=== PATIENT | male | born 1935 | race Caucasian/White ===

== ENCOUNTER 2021-09-11 17:49 | Inpatient (IN) | payer MEDICARE, OTHER ==
[2021-09-11 18:47] VITALS: BMI 25.8
[2021-09-11 20:25] LABS: BASO % 0.5 % (0-2.0); HEMATOCRIT 40.4 % (35.4-49); HEMOGLOBIN 13.5 GM/dL (11.7-16.9); LYMPH % 20.3 % (8-40); MCH 29.3 pg (25.7-33.7); MCHC 33.3 g/dl (32.0-35.9); MEAN PLT VOLUME 8.1 fl (7.5-11.1); MONO % 6.7 % (3.8-10.2); NEUT % 71.5 % (42.8-82.8); PLATELET COUNT 157 10^3/uL (134-434); RDW 15.3 % (11.9-15.9); WHITE BLOOD COUNT 6.6 K/mm3 (4.0-10.0)
[2021-09-11 20:36] LABS: INR 1.76 (0.83-1.09); PROTHROMBIN TIME (PATIENT) 20.4 SEC (9.7-13.0)
[2021-09-11 20:38] LABS: ACTIVATED PTT 34.5 SECONDS (25.2-36.5)
[2021-09-11 20:43] LABS: BLOOD UREA NITROGEN 34.2 mg/dL (7-18); CALCIUM 8.9 mg/dL (8.5-10.1)
[2021-09-11 20:44] LABS: ALBUMIN 3.6 g/dl (3.4-5.0)
[2021-09-11 20:46] LABS: CREATININE 1.5 mg/dL (0.55-1.3)
[2021-09-11 20:48] LABS: BILIRUBIN,TOTAL 0.4 mg/dL (0.2-1)
[2021-09-11 23:39] LABS: URINE APPEARANCE CLEAR; URINE BILIRUBIN NEGATIVE (NEGATIVE); URINE COLOR YELLOW; URINE GLUCOSE (UA) NEGATIVE (NEGATIVE); URINE KETONE NEGATIVE (NEGATIVE); URINE LEUK ESTERASE NEGATIVE (NEGATIVE); URINE NITRITE NEGATIVE (NEGATIVE); URINE PROTEIN NEGATIVE (NEGATIVE); URINE UROBILINOGEN 0.2 mg/dL (0.2-1.0)
[2021-09-12] MEDS ORDERED: SENNOSIDES 8.6MG TABLET (FP) PO PRN (07:33)
[2021-09-12] MEDS ORDERED: ASPIRIN COATED 81 MG TABLET.EC PO SCH (10:00)
[2021-09-12] MEDS ORDERED: METOPROLOL TARTRATE 50 MG TABLET (FP) PO SCH (10:00)
[2021-09-12] MEDS ORDERED: MULTIVITAMINS (DAILY MVI) TABLET (FP) PO SCH (10:00)
[2021-09-12] MEDS ORDERED: LOSARTAN POTASSIUM 50 MG TABLET PO SCH (10:00)
[2021-09-12] MEDS ORDERED: POLYETHYLENE GLYCOL (HEALTHYLAX) 3350 17 GM PACKET PO SCH (10:00)
[2021-09-12 11:27] LABS: BASO % 0.6 % (0-2.0); EOS % 1.2 % (0-4.5); HEMATOCRIT 39.8 % (35.4-49); HEMOGLOBIN 13.5 GM/dL (11.7-16.9); LYMPH % 16.3 % (8-40); MCH 29.4 pg (25.7-33.7); MCHC 33.9 g/dl (32.0-35.9); MEAN CELL VOLUME 86.8 fl (80-96); MEAN PLT VOLUME 8.2 fl (7.5-11.1); MONO % 6.2 % (3.8-10.2); NEUT % 75.7 % (42.8-82.8); PLATELET COUNT 143 10^3/uL (134-434); RBC 4.58 M/mm3 (4.00-5.60); RDW 15.6 % (11.9-15.9); WHITE BLOOD COUNT 6.2 K/mm3 (4.0-10.0)
[2021-09-12 11:32] LABS: INR 1.51 (0.83-1.09); PROTHROMBIN TIME (PATIENT) 17.4 SEC (9.7-13.0)
[2021-09-12 12:00] LABS: ALBUMIN 3.3 g/dl (3.4-5.0); BLOOD UREA NITROGEN 29.7 mg/dL (7-18); CALCIUM 8.7 mg/dL (8.5-10.1)
[2021-09-12 12:03] LABS: CREATININE 1.3 mg/dL (0.55-1.3)
[2021-09-12 12:05] LABS: BILIRUBIN,TOTAL 0.7 mg/dL (0.2-1); TOT PROT 6.3 g/dl (6.4-8.2)
[2021-09-12 17:19] VITALS: BP 136/82; PULSE 89; TEMP 97.3
[2021-09-12] MEDS ORDERED: WARFARIN NA 2 MG TABLET PO SCH (18:00)
[2021-09-12] MEDS ORDERED: WARFARIN NA 3 MG TABLET PO SCH (18:00)
[2021-09-12] MEDS ORDERED: ATORVASTATIN CA 10 MG TABLET (FP) PO SCH (22:00)
[2021-09-12] MEDS ORDERED: PATIENT'S OWN MEDICATION (NON-FORMULARY) (Sennosides [Senna] 8.6 MG Capsule) PO SCH (22:00)
[2021-09-12] MEDS ORDERED: GABAPENTIN 100 MG CAPSULE PO SCH (22:00)
== END 2021-09-12 18:00 | DRG 312 ==
LOC: JER 17:49 → JERBED 19:38 → OBSVTOIN 23:59 → J4S 09-12 05:45
PROVIDERS: ADMIT Internal Medicine; ATTEND Family Medicine
DX: R55 Syncope and collapse (principal); I48.91 Unspecified atrial fibrillation; I10 Essential (primary) hypertension; S00.01XA Abrasion of scalp, initial encounter; E78.5 Hyperlipidemia, unspecified; I49.3 Ventricular premature depolarization; R29.6 Repeated falls; Z86.73 Personal history of transient ischemic attack (TIA), and cerebral infarction without residual deficits; Y92.098 Other place in other non-institutional residence as the place of occurrence of the external cause; W18.39XA Other fall on same level, initial encounter
CPT/HCPCS: 36415; 70450-TC; 71045-TC-FY; 72125-TC; 72170-TC-FY; 73590-TC-LT-FY; 80053; 81003; 82550; 84443; 84484; 85025; 85610; 85730; 86850; 86900; 86901; 87086; 93005; 93010; 99285-25; C9803-CS; G0378; U0003; U0005